=== PATIENT | female | born 1955 | race Caucasian/White ===

== ENCOUNTER → 2017-10-30 | Outpatient (CLI) | payer OTHER | LOC: BMCIMAGING 12:18 | PROVIDERS: ATTEND Nurse Practitioner Adult Health | DX: Z12.31 Encounter for screening mammogram for malignant neoplasm of breast (principal) ==

== ENCOUNTER → 2017-12-10 | Outpatient (CLI) | payer OTHER | LOC: BMCIMAGING 16:38 | PROVIDERS: ATTEND Allergy & Immunology Allergy | DX: R06.02 Shortness of breath (principal); R07.89 Other chest pain; R09.89 Other specified symptoms and signs involving the circulatory and respiratory systems ==

== ENCOUNTER → 2019-01-11 | Outpatient (CLI) | payer OTHER | LOC: BMCIMAGING 13:47 | PROVIDERS: ATTEND Nurse Practitioner Adult Health | DX: Z12.31 Encounter for screening mammogram for malignant neoplasm of breast (principal) ==